=== PATIENT | male | born 1965 | race Caucasian/White ===

== ENCOUNTER 2023-11-03 14:35 | Outpatient (CLI) | payer OTHER | END 2023-11-03 14:36 | disposition home or self-care (01) | LOC: BICCT 14:35 | PROVIDERS: ATTEND Orthopaedic Surgery | DX: M17.12 Unilateral primary osteoarthritis, left knee (principal); M25.462 Effusion, left knee ==

== ENCOUNTER 2023-11-15 05:43 | Observation (INO) | payer OTHER ==
[2023-11-11 09:37] VITALS: BMI 34.7
[2023-11-16 06:20] LABS: Hematocrit 37.2 % (42.0-52.0); Hemoglobin 12.6 g/dL (14.0-18.0); Mean Corpuscular HGB CONC 33.9 g/dL (32.0-36.0); Mean Corpuscular Hemoglobin 31.9 pg (27.0-31.0); Mean Corpuscular Volume 94.2 fL (78.0-98.0); Mean Platelet Volume 9.5 fL (7.4-10.4); Platelet Count 254 10x3/uL (130-400); RBC Distribution Width 12.3 % (11.5-14.5); Red Blood Cell (RBC) Count 3.95 mill/uL (4.70-6.10)
[2023-11-16 12:11] VITALS: BP 136/71; TEMP 97.7
== END 2023-11-16 13:45 | disposition home or self-care (01) ==
LOC: SDC 05:43 → SJJU 09:45
PROVIDERS: ADMIT Orthopaedic Surgery; ATTEND Orthopaedic Surgery
PROC: 0SRD0JZ Replacement of Left Knee Joint with Synthetic Substitute, Open Approach (ICD-10-PCS; principal; 2023-11-16)
DX: M17.12 Unilateral primary osteoarthritis, left knee (principal); Z79.899 Other long term (current) drug therapy; Z87.891 Personal history of nicotine dependence
CPT/HCPCS: 36415; 85027; A4306; C1713; C1776; C1889; J0171; J0665; J1100; J1885; J2001; J2250; J2405; J2550; J2704; J2795; J3010; J3370; J3490; J7050

== ENCOUNTER 2024-02-28 10:17 | Emergency (ER) | payer OTHER ==
[2024-02-28 11:19] LABS: #Basophils 0.07 10x3/uL (0.0-0.2); %Eosinophils 6.1 % (0.0-10.0); %Lymphocytes 18.6 % (21.0-51.0); %Monocytes 5.9 % (0.0-10.0); Hematocrit 43.1 % (42.0-52.0); Hemoglobin 14.8 g/dL (14.0-18.0); Mean Corpuscular HGB CONC 34.3 g/dL (32.0-36.0); Mean Corpuscular Hemoglobin 31.4 pg (27.0-31.0); Mean Corpuscular Volume 91.3 fL (78.0-98.0); Mean Platelet Volume 9.1 fL (7.4-10.4); Platelet Count 282 10x3/uL (130-400); RBC Distribution Width 12.2 % (11.5-14.5); Red Blood Cell (RBC) Count 4.72 mill/uL (4.70-6.10)
[2024-02-28 11:35] LABS: Prothrombin Time 13.6 sec (12.0-14.7)
[2024-02-28 11:36] LABS: PTT 27.7 sec (22.9-36.1)
[2024-02-28 11:53] LABS: ALT (SGPT) 32 U/L (8-55); AST (SGOT) 22 U/L (5-34); Albumin 3.8 g/dL (3.5-5.0); Alkaline Phosphatase 108 U/L (40-110); Anion Gap 12 mmol/L (10-20); BUN (Urea Nitrogen) 14 mg/dL (8.4-25.7); Bilirubin, Total 0.7 mg/dL (0.2-1.2); Calc. Creatinine Clearance 0 mL/min (70-130); Calcium 8.9 mg/dL (7.8-10.44); Carbon Dioxide 24 mmol/L (22-29); Chloride 106 mmol/L (98-107); Estimated GFR 100; Globulin 2.9 g/dL (2.4-3.5); Glucose 258 mg/dL (70-105); Lipase 12 U/L (8-78); Potassium 3.7 mmol/L (3.5-5.1); Protein, Total 6.7 g/dL (6.0-8.3); Sodium 138 mmol/L (136-145)
[2024-02-28 12:56] LABS: Bacteria/HPF None Seen HPF (None Seen); Bilirubin Negative (Negative); Blood, Urine 3+ (Negative); CAUTI Indications for Culture Acute Hematuria; Clarity Turbid (Clear); Glucose, Urine (Dipstick) 500 mg/dL (Negative); Ketone, Urine Negative (Negative); Leukocyte Negative Leu/uL (Negative); Nitrite Negative (Negative); Protein, Urine (Dipstick) 50 mg/dL (Neg-Trace); RBC/HPF Greater than 50 HPF (0-3); Specific Gravity, Urine 1.023 (1.002-1.036); Squamous Epithelial None Seen HPF (0-3); Urine Culture Reflex No No; Urobilinogen Normal mg/dL (Less than 2); WBC/HPF 0-3 HPF (0-3)
[2024-02-28] MEDS ORDERED: Iopamidol 370 76% 100 ML VIAL ONE (13:13)
== END 2024-02-28 14:18 | disposition home or self-care (01) ==
LOC: ERS 10:17
DX: N20.0 Calculus of kidney (principal); K76.89 Other specified diseases of liver; R31.9 Hematuria, unspecified; Z87.891 Personal history of nicotine dependence; Z79.899 Other long term (current) drug therapy
CPT/HCPCS: 36415; 74178; 80053; 81001; 83690; 85025; 85610; 85730; 87086; Q9967

== ENCOUNTER 2024-03-30 01:14 | Inpatient (IN) | payer OTHER ==
[2024-03-30] MEDS ORDERED: Iopamidol-370 76% 500 ML MDV (1 ML CHARGE) ONE (11:42)
[2024-03-30 18:26] VITALS: BMI 35.0
[2024-03-30] MEDS ORDERED: Acetaminophen 650 MG Suppository PR PRN (19:05)
[2024-03-30] MEDS: Atorvastatin Calcium 40 MG TAB PO SCH (20:06)
[2024-03-30] MEDS: Tamsulosin HCl 0.4 MG CAP PO SCH (20:06)
[2024-03-30] MEDS: Famotidine 20 MG TAB PO SCH (20:06)
[2024-03-30] MEDS: Acetaminophen 325 MG TAB PO SCH (20:07)
[2024-03-31 04:23] LABS: %Basophils 1.3 % (0.0-1.0); %Eosinophils 8.1 % (0.0-10.0); %Lymphocytes 20.3 % (21.0-51.0); %Monocytes 11.3 % (0.0-10.0); %Neutrophils 58.6 % (42.0-75.0); Hematocrit 42.8 % (42.0-52.0); Hemoglobin 14.4 g/dL (14.0-18.0); Mean Corpuscular HGB CONC 33.6 g/dL (32.0-36.0); Mean Corpuscular Hemoglobin 31.2 pg (27.0-31.0); Mean Corpuscular Volume 92.6 fL (78.0-98.0); Mean Platelet Volume 8.8 fL (7.4-10.4); Platelet Count 264 10x3/uL (130-400); RBC Distribution Width 12.1 % (11.5-14.5); Red Blood Cell (RBC) Count 4.62 mill/uL (4.70-6.10)
[2024-03-31 04:45] LABS: Anion Gap 12 mmol/L (10-20); BUN (Urea Nitrogen) 14 mg/dL (8.4-25.7); Calc. Creatinine Clearance 146 mL/min (70-130); Calcium 8.6 mg/dL (7.8-10.44); Carbon Dioxide 24 mmol/L (22-29); Cardiac Risk 6.3 (Less than 4.5); Chloride 107 mmol/L (98-107); Cholesterol 202 mg/dl (< 200 Desired); Estimated GFR 94; Glucose 143 mg/dL (70-105); HDL Cholesterol 32 mg/dL (>60 Neg Risk); LDL Cholesterol, Calculated 132 mg/dL; Sodium 139 mmol/L (136-145); Triglycerides 191 mg/dL (Less than 150)
[2024-03-31] MEDS: Aspirin 81 mg Enteric Coated Tablet PO SCH (10:04)
[2024-03-31] MEDS: Finasteride 5 MG TAB PO SCH (10:04)
[2024-03-31] MEDS: Enoxaparin 40 MG (0.4 mL) SYRINGE SC SCH (10:05)
[2024-03-31 13:48] LABS: Hemoglobin A1c 6.9 % (4.0-6.0)
[2024-03-31 16:25] LABS: Amphetamine Not Detected (NotDetected); Barbiturates Screen Not Detected (NotDetected); Benzodiazepine Screen Not Detected (NotDetected); Cocaine Metabolite Screen Not Detected (NotDetected); Methadone Not Detected (NotDetected); Methamphetamine Not Detected (NotDetected); Opiate Screen Not Detected (NotDetected); Oxycodone Screen Not Detected (NotDetected); Phencyclidine (PCP) Not Detected (NotDetected); THC/Cannabinoid Screen Not Detected (NotDetected); Tricyclic Screen Not Detected (NotDetected)
[2024-03-31] MEDS ORDERED: metFORMIN 500 MG TAB PO SCH (17:00)
[2024-03-31] MEDS: Promethazine HCl 12.5 MG in Sodium Chloride 0.9% 50 ML IVPB SCH (17:49)
[2024-04-01 04:50] LABS: #Basophils 0.11 10x3/uL (0.0-0.2); %Basophils 1.4 % (0.0-1.0); %Eosinophils 6.8 % (0.0-10.0); %Lymphocytes 16.9 % (21.0-51.0); %Monocytes 9.9 % (0.0-10.0); %Neutrophils 64.8 % (42.0-75.0); Hematocrit 44.8 % (42.0-52.0); Hemoglobin 14.9 g/dL (14.0-18.0); Mean Corpuscular HGB CONC 33.3 g/dL (32.0-36.0); Mean Corpuscular Hemoglobin 30.8 pg (27.0-31.0); Mean Corpuscular Volume 92.6 fL (78.0-98.0); Mean Platelet Volume 9.1 fL (7.4-10.4); Platelet Count 273 10x3/uL (130-400); RBC Distribution Width 12.1 % (11.5-14.5); Red Blood Cell (RBC) Count 4.84 mill/uL (4.70-6.10); Troponin I Less than 0.010 ng/mL (< 0.028)
[2024-04-01 04:56] LABS: Prothrombin Time 13.7 sec (12.0-14.7)
[2024-04-01 04:57] LABS: PTT 29.2 sec (22.9-36.1)
[2024-04-01 05:01] LABS: ALT (SGPT) 36 U/L (8-55); AST (SGOT) 26 U/L (5-34); Albumin 3.7 g/dL (3.5-5.0); Alkaline Phosphatase 118 U/L (40-110); Anion Gap 14 mmol/L (10-20); BUN (Urea Nitrogen) 13 mg/dL (8.4-25.7); Bilirubin, Direct 0.2 mg/dL (0.1-0.3); Bilirubin, Total 1.1 mg/dL (0.2-1.2); Calc. Creatinine Clearance 143 mL/min (70-130); Calcium 8.9 mg/dL (7.8-10.44); Carbon Dioxide 23 mmol/L (22-29); Chloride 106 mmol/L (98-107); Estimated GFR 92; Glucose 151 mg/dL (70-105); Magnesium 2.2 mg/dL (1.6-2.6); Potassium 4.5 mmol/L (3.5-5.1); Protein, Total 6.2 g/dL (6.0-8.3); Sodium 138 mmol/L (136-145)
[2024-04-01] MEDS: Finasteride 5 MG TAB PO SCH (08:36)
[2024-04-01 08:41] VITALS: TEMP 97.9
[2024-04-01] MEDS ORDERED: Adenosine 90 mg (30 mL) VIAL ONE (09:48)
[2024-04-01] MEDS: Lisinopril 2.5 MG TAB PO SCH (14:42)
[2024-04-01 16:49] VITALS: BP 129/78
[2024-04-02] MEDS ORDERED: Lisinopril 2.5 MG TAB PO SCH (09:00)
== END 2024-04-01 18:54 | disposition home or self-care (01) | DRG 103 ==
LOC: 2SE 17:55 → OBSVTOIN 04-01 09:27
PROVIDERS: ADMIT Internal Medicine; ATTEND Family Medicine
DX: G43.109 Migraine with aura, not intractable, without status migrainosus (principal); G45.9 Transient cerebral ischemic attack, unspecified; N40.0 Benign prostatic hyperplasia without lower urinary tract symptoms; C61 Malignant neoplasm of prostate; R53.1 Weakness; E11.9 Type 2 diabetes mellitus without complications; R27.0 Ataxia, unspecified; E78.5 Hyperlipidemia, unspecified; K76.89 Other specified diseases of liver; I10 Essential (primary) hypertension; J84.10 Pulmonary fibrosis, unspecified; Z87.891 Personal history of nicotine dependence
CPT/HCPCS: 36415; 70551; 71275; 78452; 80048; 80061; 80076; 80306; 83036; 83735; 84443; 84484; 85025; 85610; 85730; 86850; 86900; 86901; 93017; 93306; 96372; 96374; A9502; G0378; J0153; J1650; J2550; Q9967

== ENCOUNTER 2025-02-25 09:32 | Outpatient (CLI) | payer OTHER ==
[2025-02-25] MEDS ORDERED: Iopamidol 370 76% 100 ML VIAL ONE (10:14)
== END 2025-02-25 09:33 | disposition home or self-care (01) ==
LOC: CT 09:32
PROVIDERS: ATTEND Internal Medicine Hematology & Oncology
DX: C61 Malignant neoplasm of prostate (principal); K76.9 Liver disease, unspecified; D73.89 Other diseases of spleen; R59.9 Enlarged lymph nodes, unspecified; N40.0 Benign prostatic hyperplasia without lower urinary tract symptoms
CPT/HCPCS: 74177; Q9967

== ENCOUNTER 2025-03-08 08:33 | Outpatient (CLI) | payer OTHER ==
[2025-03-08 09:44] LABS: #Basophils 0.06 10x3/uL (0.0-0.2); #Eosinophils 0.50 10x3/uL (0.0-0.7); #Monocytes 0.59 10x3/uL (0.11-0.59); #Neutrophils 4.40 10x3/uL (1.40-6.50); %Basophils 0.8 % (0.0-1.0); %Eosinophils 7.0 % (0.0-10.0); %Lymphocytes 22.0 % (21.0-51.0); %Monocytes 8.2 % (0.0-10.0); %Neutrophils 61.4 % (42.0-75.0); Hematocrit 39.1 % (42.0-52.0); Hemoglobin 12.8 g/dL (14.0-18.0); Mean Corpuscular Hemoglobin 30.8 pg (27.0-31.0); Mean Corpuscular Volume 94.0 fL (78.0-98.0); Platelet Count 256 10x3/uL (130-400); Red Blood Cell (RBC) Count 4.16 mill/uL (4.70-6.10); White Blood Cell (WBC) Count 7.17 10x3/uL (4.8-10.8)
[2025-03-08 09:46] LABS: Bacteria/HPF None Seen HPF (None Seen); Glucose, Urine (Dipstick) Normal (Negative); Leukocyte Negative Leu/uL (Negative); Protein, Urine (Dipstick) Negative (Neg-Trace); RBC/HPF 0-3 HPF (0-3); Specific Gravity, Urine 1.033 (1.002-1.036); WBC/HPF 0-3 HPF (0-3)
[2025-03-08 09:57] LABS: INR-International Normal Ratio 1.0; PTT 29.6 sec (22.9-36.1); Prothrombin Time 13.5 sec (12.0-14.7)
[2025-03-08 10:05] LABS: Anion Gap 12 mmol/L (10-20); BUN (Urea Nitrogen) 24 mg/dL (8.4-25.7); Calc. Creatinine Clearance 0 mL/min (70-130); Calcium 8.5 mg/dL (7.8-10.44); Carbon Dioxide 25 mmol/L (22-29); Chloride 105 mmol/L (98-107); Glucose 142 mg/dL (70-105); Potassium 4.3 mmol/L (3.5-5.1); Sodium 138 mmol/L (136-145)
== END 2025-03-08 08:34 | disposition home or self-care (01) ==
LOC: LABBT 08:33
PROVIDERS: ATTEND Urology
DX: Z01.818 Encounter for other preprocedural examination (principal); C61 Malignant neoplasm of prostate; N40.1 Benign prostatic hyperplasia with lower urinary tract symptoms; R31.0 Gross hematuria; N20.2 Calculus of kidney with calculus of ureter; N13.8 Other obstructive and reflux uropathy; K76.9 Liver disease, unspecified
CPT/HCPCS: 80048; 81001; 85025; 85610; 85730; 87086; 93005; 93010

== ENCOUNTER 2025-04-05 06:23 | Day surgery (SDC) | payer OTHER ==
[2025-03-08 08:49] VITALS: BMI 34.4
[2025-04-05 08:41] LABS: #Basophils 0.09 10x3/uL (0.0-0.2); #Eosinophils 0.42 10x3/uL (0.0-0.7); #Monocytes 0.54 10x3/uL (0.11-0.59); #Neutrophils 4.27 10x3/uL (1.40-6.50); %Basophils 1.3 % (0.0-1.0); %Eosinophils 6.3 % (0.0-10.0); %Lymphocytes 19.9 % (21.0-51.0); %Monocytes 8.1 % (0.0-10.0); %Neutrophils 64.1 % (42.0-75.0); Hematocrit 42.6 % (42.0-52.0); Hemoglobin 14.1 g/dL (14.0-18.0); Mean Corpuscular Hemoglobin 30.3 pg (27.0-31.0); Mean Corpuscular Volume 91.6 fL (78.0-98.0); Platelet Count 267 10x3/uL (130-400); Red Blood Cell (RBC) Count 4.65 mill/uL (4.70-6.10); White Blood Cell (WBC) Count 6.67 10x3/uL (4.8-10.8)
[2025-04-05 08:54] LABS: INR-International Normal Ratio 0.9; Prothrombin Time 12.7 sec (12.0-14.7)
[2025-04-05 08:55] LABS: Anion Gap 14 mmol/L (10-20); BUN (Urea Nitrogen) 13 mg/dL (8.4-25.7); Calc. Creatinine Clearance 169 mL/min (70-130); Calcium 9.1 mg/dL (7.8-10.44); Carbon Dioxide 23 mmol/L (22-29); Chloride 106 mmol/L (98-107); Glucose 153 mg/dL (70-105); PTT 28.4 sec (22.9-36.1); Potassium 4.2 mmol/L (3.5-5.1); Sodium 139 mmol/L (136-145)
[2025-04-05] MEDS ORDERED: cefTRIAXone (ROCEPHIN) 1 GM VIAL ONE (09:04)
[2025-04-05] MEDS ORDERED: fentaNYL PF 100 MCG/2 ML SYRINGE ONE ×2 (09:13→10:50)
[2025-04-05] MEDS ORDERED: PROPOFOL 20 ML ONE ×2 (09:14→10:04)
[2025-04-05] MEDS ORDERED: Rocuronium Bromide 10 MG/ML (10ML VIAL) ONE (09:27)
[2025-04-05] MEDS ORDERED: Ondansetron PF 4 MG/2 ML Vial ONE (09:48)
[2025-04-05] MEDS ORDERED: Albuterol HFA (OR) 200 PUFF INH ONE (09:57)
[2025-04-05] MEDS ORDERED: SUGAMMADEX SODIUM 200 MG/2 ML VIAL ONE (09:58)
[2025-04-05] MEDS ORDERED: Oxybutynin 5 MG TAB ONE (11:35)
== END 2025-04-05 14:55 | disposition home or self-care (01) ==
LOC: SDC 06:23
PROVIDERS: ATTEND Urology
PROC: 0VT08ZZ Resection of Prostate, Via Natural or Artificial Opening Endoscopic (ICD-10-PCS; principal; 2025-04-05)
DX: C61 Malignant neoplasm of prostate (principal); N40.1 Benign prostatic hyperplasia with lower urinary tract symptoms
CPT/HCPCS: 80048; 85025; 85610; 85730; 88305; 88342; A4333; J0696; J1100; J2250; J2704

== ENCOUNTER 2025-05-09 12:09 | Outpatient (CLI) | payer OTHER ==
[2025-05-09 14:25] LABS: #Basophils 0.10 10x3/uL (0.0-0.2); #Eosinophils 0.55 10x3/uL (0.0-0.7); #Monocytes 0.77 10x3/uL (0.11-0.59); #Neutrophils 5.10 10x3/uL (1.40-6.50); %Basophils 1.2 % (0.0-1.0); %Eosinophils 6.7 % (0.0-10.0); %Lymphocytes 20.9 % (21.0-51.0); %Monocytes 9.3 % (0.0-10.0); %Neutrophils 61.8 % (42.0-75.0); Hematocrit 41.7 % (42.0-52.0); Hemoglobin 13.5 g/dL (14.0-18.0); Mean Corpuscular Hemoglobin 30.2 pg (27.0-31.0); Mean Corpuscular Volume 93.3 fL (78.0-98.0); Platelet Count 289 10x3/uL (130-400); Red Blood Cell (RBC) Count 4.47 mill/uL (4.70-6.10); White Blood Cell (WBC) Count 8.26 10x3/uL (4.8-10.8)
[2025-05-09 14:40] LABS: INR-International Normal Ratio 1.1; Prothrombin Time 13.8 sec (12.0-14.7)
[2025-05-09 14:54] LABS: ALT (SGPT) 48 U/L (Less than 45); AST (SGOT) 32 U/L (11-34); Albumin 4.0 g/dL (3.1-4.5); Alkaline Phosphatase 136 U/L (40-110); Anion Gap 12 mmol/L (10-20); BUN (Urea Nitrogen) 17 mg/dL (8.4-25.7); Bilirubin, Total 0.5 mg/dL (0.3-1.2); Calc. Creatinine Clearance 0 mL/min (70-130); Calcium 9.3 mg/dL (7.8-10.44); Carbon Dioxide 27 mmol/L (22-29); Chloride 105 mmol/L (98-107); Globulin 2.7 g/dL (2.4-3.5); Glucose 125 mg/dL (70-105); Potassium 3.9 mmol/L (3.5-5.1); Sodium 140 mmol/L (136-145)
== END 2025-05-09 12:10 | disposition home or self-care (01) ==
LOC: LABBT 12:09
PROVIDERS: ATTEND Orthopaedic Surgery
DX: Z01.818 Encounter for other preprocedural examination (principal); M17.11 Unilateral primary osteoarthritis, right knee
CPT/HCPCS: 80053; 85025; 85610; 87081; 93005; 93010

== ENCOUNTER 2025-05-09 12:39 | Outpatient (CLI) | payer OTHER | END 2025-05-09 12:40 | disposition home or self-care (01) | LOC: CT 12:39 | PROVIDERS: ATTEND Orthopaedic Surgery | DX: Z01.818 Encounter for other preprocedural examination (principal); M17.11 Unilateral primary osteoarthritis, right knee ==

== ENCOUNTER 2025-05-14 05:23 | Observation (INO) | payer OTHER ==
[2025-05-09 12:18] VITALS: BMI 33.6
[2025-05-14] MEDS ORDERED: Vancomycin HCl 1.5 GM VIAL ONE (06:29)
[2025-05-14] MEDS ORDERED: Tranexamic Acid 1,000 MG/10 ML VIAL ONE (06:29)
[2025-05-14] MEDS ORDERED: Lidocaine 1% (PF) 30 ML VIAL ONE (06:33)
[2025-05-14] MEDS ORDERED: Ropivacaine 0.5% HCl/PF (150 MG/30 ML VIAL) ONE (06:33)
[2025-05-14] MEDS ORDERED: CEFAZOLIN 2 GM VIAL ONE (06:50)
[2025-05-14] MEDS ORDERED: fentaNYL PF 100 MCG/2 ML SYRINGE ONE ×2 (06:57→09:12)
[2025-05-14] MEDS ORDERED: Lidocaine 1% PF 5 ML VIAL ONE (06:58)
[2025-05-14] MEDS ORDERED: Ketorolac Tromethamine 30 MG (1 mL) VIAL ONE (06:58)
[2025-05-14] MEDS ORDERED: Ondansetron PF 4 MG/2 ML Vial ONE (06:58)
[2025-05-14] MEDS ORDERED: PROPOFOL 200 MG/20 ML VIAL ONE (07:06)
[2025-05-14] MEDS ORDERED: Ropivacaine 0.2% 550 ML 550 ML NERVE BLCK SCH (07:15)
[2025-05-14] MEDS ORDERED: Ondansetron PF 4 MG/2 ML Vial IVP PRN ×2 (07:15→09:14)
[2025-05-14] MEDS ORDERED: HYDROcodone/Acetaminophen 10/325 mg Tablet PO PRN (07:15)
[2025-05-14] MEDS ORDERED: DAROLUTAMIDE 300 MG PO SCH (09:14)
[2025-05-14] MEDS ORDERED: diphenhydrAMINE 25 MG CAP PO PRN (09:14)
[2025-05-14] MEDS ORDERED: Acetaminophen 325 MG TAB PO PRN (09:14)
[2025-05-14] MEDS ORDERED: HYDROmorphone 0.5 MG/0.5 ML SYRINGE ONE (09:47)
[2025-05-14] MEDS: metFORMIN 500 MG TAB PO SCH ×2 (11:52→16:59)
[2025-05-14] MEDS: Ketorolac Tromethamine 30 MG (1 mL) VIAL IVP SCH (11:53)
[2025-05-14] MEDS: Aspirin 81 mg Enteric Coated Tablet PO SCH ×2 (11:53→21:09)
[2025-05-14] MEDS: Gabapentin 300 MG CAP PO SCH (21:09)
[2025-05-15 05:20] LABS: Hematocrit 36.2 % (42.0-52.0); Hemoglobin 11.8 g/dL (14.0-18.0); Mean Corpuscular Hemoglobin 30.3 pg (27.0-31.0); Mean Corpuscular Volume 93.1 fL (78.0-98.0); Platelet Count 249 10x3/uL (130-400); Red Blood Cell (RBC) Count 3.89 mill/uL (4.70-6.10); White Blood Cell (WBC) Count 12.16 10x3/uL (4.8-10.8)
[2025-05-15 05:43] LABS: Anion Gap 13 mmol/L (10-20); BUN (Urea Nitrogen) 17 mg/dL (8.4-25.7); Calc. Creatinine Clearance 143 mL/min (70-130); Calcium 8.7 mg/dL (7.8-10.44); Carbon Dioxide 27 mmol/L (22-29); Chloride 107 mmol/L (98-107); Glucose 148 mg/dL (70-105); Potassium 4.4 mmol/L (3.5-5.1); Sodium 143 mmol/L (136-145)
[2025-05-15] MEDS: Multivitamin W/ Minerals 1 TAB PO SCH (08:22)
[2025-05-15] MEDS: Ferrous Gluconate 324 MG TAB PO SCH (08:22)
[2025-05-15] MEDS: Senokot S 8.6-50 MG TAB PO SCH (08:23)
[2025-05-15] MEDS: HYDROcodone/Acetaminophen 10/325 mg Tablet PO PRN (10:34)
[2025-05-15 12:25] VITALS: BP 148/72; TEMP 97.7
== END 2025-05-15 14:43 | disposition home or self-care (01) ==
LOC: SDC 05:23 → SURG B 10:31 → SDC 13:00 → SURG B 13:14
PROVIDERS: ADMIT Orthopaedic Surgery; ATTEND Orthopaedic Surgery
PROC: 0SRC0JZ Replacement of Right Knee Joint with Synthetic Substitute, Open Approach (ICD-10-PCS; principal; 2025-05-14)
PROC: 3E0T3BZ Introduction of Anesthetic Agent into Peripheral Nerves and Plexi, Percutaneous Approach (ICD-10-PCS; 2025-05-14)
DX: M17.11 Unilateral primary osteoarthritis, right knee (principal); E11.9 Type 2 diabetes mellitus without complications; Z87.891 Personal history of nicotine dependence
CPT/HCPCS: 0055T; 27447; 64447; 36415; 36416; 80048; 85027; A4306; C1713; C1776; C1889; J0169; J0665; J1100; J1171; J1885; J2003; J2250; J2405; J2704; J2795; J3010

== ENCOUNTER 2025-05-28 11:34 | Emergency (ER) | payer OTHER | END 2025-05-28 15:45 | disposition home or self-care (01) | LOC: ERS 11:34 | DX: G89.18 Other acute postprocedural pain (principal); Z96.651 Presence of right artificial knee joint; Z87.891 Personal history of nicotine dependence; Z79.84 Long term (current) use of oral hypoglycemic drugs; Z79.82 Long term (current) use of aspirin; Z79.899 Other long term (current) drug therapy; Z86.73 Personal history of transient ischemic attack (TIA), and cerebral infarction without residual deficits | CPT/HCPCS: 96372 ==